=== PATIENT | male | born 1980 | race African-American/Black ===

== ENCOUNTER 2016-08-10 00:06 | Emergency (ER) | payer SELFPAY ==
--- NOTE | ~2016-08-10 | CR173 ---
[facility] A Service [facility] RADIOLOGY TEXT RESULTS PATIENT: TAMERA GUPTA LOCATION: SED : 76 UNIT #: [id number] AGE: [address]: Lucía Oviedo SEX: M ORDER DR: [id number] [address] [address] [id number] MR#: [id number] Acc #: [id number] NAME: TAMERA GUPTA : 1980 SEX: M STUDY DATE/TIME: 08/10/2016 0:08 UNIT: SED ROOM: STUDY DESCRIPTION: CR Knee 3 Views Rt Attending Physician: Lucía Oviedo Pa-C Ordering Physician: Lucía Oviedo Pa-C Primary Care Physician: No Primary Care Physician MEDICAL IMAGING REPORT This report is preliminary unless electronic signature is present. EXAM Right knee, 3 views COMPARISON June 30, 2012. INDICATION Patient is a 36-year-old male with pain at the sides of the right knee since yesterday after jumping on a trampoline. FINDINGS Bones are anatomically aligned. No evidence of acute fracture. There is moderate sized enthesophyte superior pole of the patella, with small to moderate suprapatellar effusion, new from comparison. No evidence of acute fracture. IMPRESSION 1. No acute fracture or dislocation of the right knee. New small to moderate suprapatellar effusion. 2. Moderate superior patellar enthesopathy. Dictated by... Gurmeet Dietrich M.D. THIS IS AN ELECTRONICALLY VERIFIED REPORT Gurmeet Dietrich M.D. at 08/13/2016 10:21 PM ELVIS/yaima TD: 08/10/2016 04:15 JOB #: [id number] [facility] A Service [facility] RADIOLOGY TEXT RESULTS PATIENT: TAMERA GUPTA LOCATION: SED : 76 UNIT #: [id number] AGE: [address]: Lucía Oviedo PAC SEX: M ORDER DR: MEDICAL IMAGING REPORT
[~2016-08-10 00:06] MED LIST: ALBUTEROL17 GM INH; AMOXICILLIN875 MG PO; AUGMENTIN875 MG PO; CILOXAN 0.3% O2.5 ML PO; CLONAZEPAM0.5 MG PO; ECOTRIN81 M1 PO; FLEXERIL10 MG PO; IBUPROFEN800 MG PO; ILOTYCIN1 G1 OP; ISOPTO ATROPINE5 ML OD; LISINOPRIL10 MG PO; LOPRESSOR PO; LORTAB 5/500 TA1 TA1 PO; MAXALT MLT10 MG/TAB PO; MUCINEX DM ER1 EACH PO; NAPROSYN-EC500 M1 PO; NAPROSYN500 MG PO; NO MEDICATIONS; NORCO 5/325 TAB1 TAB PO; PHENERGAN PO; PREDNISONE PO; TOPAMAX PO; VICODIN 5/1 TAB 5/50 PO; VOLTAREN75 MG PO; ZOFRAN ODT4 MG/UDTAB PO
== END 2016-08-10 00:50 | disposition home or self-care (01) ==
LOC: SED 00:06
DX: M25.461 Effusion, right knee (principal); I10 Essential (primary) hypertension; X58.XXXA Exposure to other specified factors, initial encounter; Y93.39 Activity, other involving climbing, rappelling and jumping off; Y92.830 Public park as the place of occurrence of the external cause
CPT/HCPCS: 29505; 73562; 99283

== ENCOUNTER 2017-01-05 21:56 | Emergency (ER) | payer SELFPAY ==
[~2017-01-05] VITALS: Ht 190.5 cm; Wt 149.7 kg
--- NOTE | ~2017-01-05 | EKG ---
PATIENT: TAMERA GUPTA UNIT #: [id number] Ventricular Rate: 76 BPM Atrial Rate: 76 BPM P-R Interval: 222 ms QRS Duration: 104 ms Q-T Interval: 374 ms QTC Calculation(Bezet): 420 ms P [place]: 48 degrees Calculated R [place]: -31 degrees Calculated T [place]: 32 degrees Diagnosis Line: Sinus rhythm with 1st degree A-V block Diagnosis Line: Left axis deviation Diagnosis Line: Moderate voltage criteria for LVH, may be normal Diagnosis Line: variant Diagnosis Line: Abnormal ECG Diagnosis Line: When compared with ECG of 05-NOV-2015 22:02, Diagnosis Line: No significant change was found Diagnosis Line: Confirmed by HARRIETT HOGAN MD ([id number]) on Diagnosis Line: 01/07/2017 8:40:54 AM INTERPRETING MD: EDISON HANNA
[2017-01-05] MEDS ORDERED: NO MEDICATIONS (22:11)
[2017-01-05 22:49] LABS: URINE SOURCE CLEAN CATCH
[2017-01-05 22:52] LABS: URINE APPEARANCE CLEAR; URINE BILIRUBIN NEG (NEG); URINE BLOOD NEG (NEG); URINE COLOR YELLOW; URINE GLUCOSE NEG (NORM); URINE KETONE NEG (NEG); URINE LEUKOCYTE ESTERASE NEG (NEG); URINE NITRATE NEG (NEG); URINE PH 5.5 (5-8); URINE PROTEIN NEG (NEG); URINE SPECIFIC GRAVITY >=1.030 (1.003-1.035); URINE UROBILINOGEN 0.2 MG/DL (NORM)
[2017-01-05 22:56] LABS: MICRO INDICATED? NO
[2017-01-05 22:57] LABS: BASOPHIL# 0.1 X10e3 (0-0.3); BASOPHIL% 1.2 % (0-2.5); EOSINOPHIL# 0.1 X10e3 (0-0.7); HEMATOCRIT 37.8 % (38.0-50.0); HEMOGLOBIN 12.2 gm/dL (13.0-16.0); LYMPHOCYTE# 2.1 X10e3 (1.0-3.5); LYMPHOCYTE% 30.8 % (17.0-45.0); MEAN CELL VOLUME 89.6 FL (83-96); MEAN CORPUSCULAR HEMOGLOBIN 28.8 PG (28-34); MEAN CORPUSCULAR HGB CONC 32.2 g/dL (30-36); MEAN PLATELET VOLUME 7.2 FL (6.5-11.5); MONOCYTE# 0.8 X10e3 (0-1.0); MONOCYTE% 12.7 % (3.0-12.0); NEUTROPHIL# 3.6 X10e3 (1.5-7.1); NEUTROPHIL% 53.3 % (40-75); PLATELET COUNT 253 X10e3 (140-420); RED BLOOD COUNT 4.22 X10e (3.90-5.60); RED CELL DISTRIBUTION WIDTH 12.4 % (11.0-15.5); WHITE BLOOD COUNT 6.7 X10e3 (4.0-10.5)
[2017-01-05 23:06] LABS: POC - CKMB 2.7 ng/mL (0.0-7.9); POC - TROPONIN <0.05 ng/mL (<=0.05)
[2017-01-05 23:06] LABS: DIFF IND NO
[2017-01-05 23:15] LABS: ALBUMIN SERUM 4.1 g/dL (3.5-5.0); BILIRUBIN, DIRECT 0.1 mg/dL (0.0-0.2); BILIRUBIN,INDIRECT 0.4 mg/dL (0.0-0.9); BILIRUBIN,TOTAL 0.5 mg/dL (0.2-2.0); CALCIUM SERUM 9.1 mg/dL (8.4-10.2); GLOM FILT RATE Estimated 110.2 mL/min (>60); PROTEIN TOTAL SERUM 6.8 g/dL (6.0-8.3)
== END 2017-01-06 00:11 | disposition home or self-care (01) ==
LOC: SED 21:56
PROVIDERS: Emergency Medicine
DX: R60.0 Localized edema (principal)
CPT/HCPCS: 36415; 80048; 80076; 81003; 82550; 82553; 83880; 84484; 85025; 93005; 99283